=== PATIENT | female | born 1995 | race Caucasian/White ===

== ENCOUNTER 2019-06-03 21:34 | Day surgery (SDC) | payer OTHER ==
[2019-06-03 22:04] VITALS: BMI 31.1
[2019-06-03] MEDS ORDERED: hydrALAZINE 20 MG/ML VIAL SLOW IVP PRN (22:20)
--- NOTE | 2019-06-03 22:26 | PDOC.EVN ---
Event Note - Event Note Event Note: Dr Hu is on the unit in L&D and has talked with the patient as well.
--- NOTE | 2019-06-03 23:31 | HP ---
TIME OF EVALUATION: 2220 hours. LOCATION: Labor and delivery triage bed A. The patient Dr. Hu. CHIEF COMPLAINT: 1. Pelvic pressure and possible contractions. 2. EGA is 36 weeks and 6 days. HISTORY OF PRESENT ILLNESS: This is a 23-year-old, G1, P0, who sees Dr. Hu, who was at 36 weeks and 6 days, with a due date of 06/25, here for pelvic pressure. She states good movement and lower pelvic pressure when the baby moves. She denies leakage of fluid or vaginal bleeding. She denies recent trauma or fevers. REVIEW OF SYSTEMS: Complete review of systems was checked and is otherwise negative unless specified in the HPI. PAST MEDICAL HISTORY: Noncontributory. PAST SURGICAL HISTORY: None. ALLERGIES: NONE. SOCIAL HISTORY: Negative for alcohol, tobacco, or drug use. PHYSICAL EXAMINATION: VITAL SIGNS: Blood pressure is 124/78, pulse is in the 80s. She is afebrile with a temperature of 98.2. Clinically, she is in no acute distress. ABDOMEN: Soft and nontender. Abdomen reveals a soft uterine fundus. The cervical exam is 2 cm dilated, 80% effaced, 0 station, which is the same that she was in the office by her report. On monitor, heart tones are in the 130s to 140s and they are reactive/reassuring. Contractions were irregular on the TOCO, but occur about every 5-10 minutes. ASSESSMENT: This is a G1, P0, at 36 weeks and 6 days with latent labor but no cervical change from her past exam. My suspicion of true labor is small at this time. PLAN: 1. Reassurance given. 2. heart tones are reassuring on the 20-minute strip. 3. I have told the patient that she may return to Labor and Delivery if symptoms recurred. 4. I have seen the patient at bedside. 5. The patient to follow up with Dr. Hu within 24 to 48 hours for evaluation. Job ID: [id number]
[2019-06-04] MEDS ORDERED: FLU VACC QS2019-20(6MOS UP)/PF 60 MCG/0.5 ML SYRINGE IM ONE (09:00)
== END 2019-06-04 00:25 | disposition home or self-care (01) ==
LOC: L&D/OP 21:34
PROVIDERS: ATTEND Obstetrics & Gynecology
DX: O99.89 Other specified diseases and conditions complicating pregnancy, childbirth and the puerperium (principal); R10.2 Pelvic and perineal pain; Z3A.36 36 weeks gestation of pregnancy
CPT/HCPCS: 99283

== ENCOUNTER 2019-06-21 05:30 | Inpatient (IN) | payer OTHER ==
--- NOTE | 2019-06-21 01:17 | PDOC.LDHP ---
Labor and Delivery H&P Chief complaint: scheduled induction HPI: 24 y/o AT 39 AND 1/7 WEEKS FOR SCHEDULED ELECTIVE INDUCTION. GBS NEG. Current gestational age (weeks): 39 Due date: 06/27/19 Grav: 1 Para: 0 Current complications: none Abnormal US findings: No Current medications: pre- vitamins Allergies/Adverse Reactions: Allergies Allergy/AdvReac Type Severity Reaction Status Date / Time No Known Allergies Allergy Verified 06/03/19 21:55 Social history: none - Physical Exam Vital signs reviewed and normal: yes General: NAD, resting Heart: RRR Lungs: nonlabored breathing Abdomen: gravid Extremeties: no edema FHT: category 1 - Assessment L&D Assessment: elective induction at term - Plan Plan: admit to L&D
[~2019-06-21 05:30] MED LIST: Acetaminophen 500 MG TAB PO PRN; Butorphanol Tartrate 1 MG/ML VIAL SLOW IVP PRN; Carboprost 250 MCG/ML AMP IM PRN; Diphenoxylate HCl/Atropine Tablet PO PRN; Docusate 100 MG CAP PO PRN; HYDROcodone/Acetaminophen 5/325 mg Tablet PO PRN; Ibuprofen 800 MG TAB PO PRN; Lidocaine 1% (PF) 30 ML VIAL SC PRN; Methylergonovine 0.2 MG/ML VIAL IM PRN; Misoprostol 200 MCG TAB PR PRN; NS / Oxytocin 40 units/1000ml 1,000 ML IV PRN; NS w/ Oxytocin 10 units 500 ML IV SCH; Ondansetron PF 4 MG/2 ML Vial IVP PRN; Promethazine HCl 25 MG/ML VIAL IM PRN; hydrALAZINE 20 MG/ML VIAL SLOW IVP PRN
[2019-06-21] MEDS: Lactated Ringer's 1,000 ML IV SCH ×2 (16:09→18:19)
[2019-06-21 16:20] LABS: Hemoglobin 12.9 g/dL (12.0-16.0); Mean Corpuscular HGB CONC 35.4 g/dL (32.0-36.0); Mean Corpuscular Hemoglobin 31.2 pg (27.0-31.0); Mean Corpuscular Volume 88.3 fL (78.0-98.0); Mean Platelet Volume 9.7 fL (7.4-10.4); Platelet Count 263 thou/uL (130-400); RBC Distribution Width 13.1 % (11.5-14.5); Red Blood Cell (RBC) Count 4.12 mill/uL (4.20-5.40); White Blood Cell (WBC) Count 12.7 thou/uL (4.8-10.8)
[2019-06-21 16:32] VITALS: BMI 31.3
[2019-06-21 17:17] LABS: Syphilis Antibody Nonreactive (Nonreactive); Syphilis Antibody Index 0.04 S/CO (<1.00 Non-Reactive)
[2019-06-21 17:18] LABS: HBSAg Index 0.18 S/CO (0-0.99); Hep B Surf Ag Non-Reactive S/CO (NonReactive)
[2019-06-21] MEDS ORDERED: Fentanyl 4 mcg/Bup 0.1% Cadd 100 ML ONE (17:45)
[2019-06-21] MEDS ORDERED: Lidocaine 1.5%/Epinephrine 1:200,000 5 ML AMPUL IJ ONE (18:22)
[2019-06-21] MEDS ORDERED: Promethazine HCl 25 MG/ML VIAL IM PRN (19:40)
[2019-06-21] MEDS ORDERED: Naloxone HCl 0.4 mg/ml Vial IVP PRN ×2 (19:40)
[2019-06-21] MEDS ORDERED: Lactated Ringer's 500 ML IV PRN (19:40)
[2019-06-21] MEDS ORDERED: diphenhydrAMINE 50 MG/ML VIAL IVP PRN (19:40)
[2019-06-21] MEDS ORDERED: Acetaminophen 325 MG TAB PO PRN (19:40)
[2019-06-21] MEDS ORDERED: Ondansetron PF 4 MG/2 ML Vial IVP PRN (19:40)
[2019-06-21] MEDS ORDERED: ePHEDrine/0.9% NaCl/PF SYRINGE 50 mg/10 ml SLOW IVP PRN (19:40)
[2019-06-21] MEDS ORDERED: Communication Order-Pharmacy FS SCH (19:45)
[2019-06-21] MEDS ORDERED: Fentanyl 4 mcg/Bupivacaine 0.1% Cassette 100 ML EPIDURAL SCH (19:45)
[2019-06-21] MEDS ORDERED: Butorphanol Tartrate 1 MG/ML VIAL ONE (23:13)
[2019-06-22] MEDS ORDERED: Ondansetron PF 4 MG/2 ML Vial IVP PRN (07:40)
[2019-06-22] MEDS ORDERED: Lanolin Ointment 7 GM TUBE TOP PRN (07:40)
[2019-06-22] MEDS ORDERED: Zolpidem Tartrate 5 MG TAB PO PRN (07:40)
[2019-06-22] MEDS ORDERED: diphenhydrAMINE 25 MG CAP PO PRN (07:40)
[2019-06-22] MEDS ORDERED: Varicella virus, LIVE 0.5 ML VIAL SC ONE (07:40)
[2019-06-22] MEDS ORDERED: Benzocaine-Menthol 82.5 ML CAN TOP PRN (07:40)
[2019-06-22] MEDS ORDERED: Methylergonovine 0.2 MG/ML VIAL IM PRN (07:40)
[2019-06-22] MEDS ORDERED: Milk Of Magnesia 30 ML UDCUP PO PRN (07:40)
[2019-06-22] MEDS ORDERED: Preparation H Ointment 28 GM TUBE PR PRN (07:40)
[2019-06-22] MEDS ORDERED: Bisacodyl 10 MG SUPP PR PRN (07:40)
[2019-06-22] MEDS ORDERED: Adacel (T-DAP) 0.5 ML SYRINGE IM ONE (07:40)
[2019-06-22] MEDS ORDERED: Measles/Mumps/Rubella 10 MCG/0.5 ML VIAL SC ONE (07:40)
[2019-06-22] MEDS ORDERED: HYDROcodone/Acetaminophen 5/325 mg Tablet PO PRN (07:40)
[2019-06-22] MEDS ORDERED: hydrALAZINE 20 MG/ML VIAL SLOW IVP PRN (07:40)
[2019-06-22] MEDS ORDERED: NS / Oxytocin 40 units/1000ml 1,000 ML IV SCH (07:40)
[2019-06-22] MEDS ORDERED: Misoprostol 200 MCG TAB VAG PRN (07:40)
[2019-06-22] MEDS ORDERED: Promethazine HCl 25 MG/ML VIAL IM PRN (07:40)
[2019-06-22] MEDS: Lactated Ringer's 1,000 ML IV SCH ×2 (08:24→10:56)
[2019-06-22] MEDS: Ibuprofen 800 MG TAB PO SCH ×3 (08:24→23:47)
[2019-06-22] MEDS: Ferrous Sulfate 325 MG TAB PO SCH ×2 (08:42→16:56)
[2019-06-22] MEDS: Prenatal Vitamin 1 TAB PO SCH (08:42)
[2019-06-22] MEDS: Docusate Calcium (SURFAK) 240 MG CAP PO SCH ×2 (08:42→23:47)
[2019-06-22] MEDS ORDERED: FLU VACC QS2019-20(6MOS UP)/PF 60 MCG/0.5 ML SYRINGE IM ONE (09:00)
[2019-06-22] MEDS: HYDROcodone/Acetaminophen 5/325 mg Tablet PO PRN (14:18)
[2019-06-22] MEDS ORDERED: Sodium Chloride 0.9% 10 ML ONE (16:53)
[2019-06-23] MEDS: HYDROcodone/Acetaminophen 5/325 mg Tablet PO PRN (05:16)
[2019-06-23 05:50] LABS: Hemoglobin 11.3 g/dL (12.0-16.0); Mean Corpuscular HGB CONC 32.1 g/dL (32.0-36.0); Mean Corpuscular Hemoglobin 28.7 pg (27.0-31.0); Mean Corpuscular Volume 89.3 fL (78.0-98.0); Mean Platelet Volume 9.2 fL (7.4-10.4); Platelet Count 223 thou/uL (130-400); RBC Distribution Width 13.4 % (11.5-14.5); Red Blood Cell (RBC) Count 3.95 mill/uL (4.20-5.40); White Blood Cell (WBC) Count 12.2 thou/uL (4.8-10.8)
[2019-06-23 08:35] VITALS: BP 136/84; TEMP 98.4
[2019-06-23] MEDS: Ferrous Sulfate 325 MG TAB PO SCH (09:52)
[2019-06-23] MEDS: Docusate Calcium (SURFAK) 240 MG CAP PO SCH (09:52)
[2019-06-23] MEDS: Ibuprofen 800 MG TAB PO SCH (09:52)
[2019-06-23] MEDS: Prenatal Vitamin 1 TAB PO SCH (09:52)
--- NOTE | 2019-06-24 03:33 | DN ---
DATE OF PROCEDURE: 06/21/2019 TIME: 2257 central standard time. PREOPERATIVE DIAGNOSIS: Intrauterine at 39 weeks and 1 day with a scheduled term induction of labor. POSTOPERATIVE DIAGNOSIS: Intrauterine at 39 weeks and 1 day with a scheduled term induction of labor. PROCEDURE PERFORMED: Spontaneous vaginal delivery with a second-degree laceration as well as bilateral periurethral lacerations. FINDINGS: Viable male weighing 3644 g or 8 pounds 1 ounce, Apgars of 8 and 9. QUANTITATIVE BLOOD LOSS: Here, 355 mL. COMPLICATIONS: None. DESCRIPTION OF PROCEDURE: The patient presented to [facility] where she was admitted to the labor and delivery service. The patient underwent a normal and uneventful labor with normal cervical dilatation until she was found to be completely dilated. She was then allowed to push and was able to bring the baby down and delivered the baby in a vertex presentation without difficulties. Once the head delivered in occiput anterior position, the shoulders followed spontaneously along with the rest of the baby's body. Once out the baby's mouth and nose were bulb suctioned. The cord was clamped and cut and baby was handed to waiting attendants. Cord blood was collected. Gentle fundal massage was performed and the placenta delivered intact without problems. Hemostasis was assured. Quantitative blood loss was calculated. Inspection of the cervix, vaginal vault, and perineum did not reveal any lacerations needing suturing. Once again, hemostasis was within normal limits and the patient was allowed to recover in the labor and delivery room. Baby went to nursery. Job ID: [id number]
[2019-06-24] MEDS ORDERED: FLU VACC QS2019-20(6MOS UP)/PF 60 MCG/0.5 ML SYRINGE IM ONE (09:00)
== END 2019-06-23 16:10 | disposition home or self-care (01) | DRG 807 ==
LOC: L&D 15:25 → 3SW 06-22 12:15
PROVIDERS: ADMIT Obstetrics & Gynecology; ATTEND Obstetrics & Gynecology
PROC: 10907ZC Drainage of Amniotic Fluid, Therapeutic from Products of Conception, Via Natural or Artificial Opening (ICD-10-PCS; principal; 2019-06-21)
PROC: 10E0XZZ Delivery of Products of Conception, External Approach (ICD-10-PCS; 2019-06-21)
DX: O70.1 Second degree perineal laceration during delivery (principal); Z37.0 Single live birth; Z3A.39 39 weeks gestation of pregnancy; O71.82 Other specified trauma to perineum and vulva
CPT/HCPCS: 36415; 85027; 86780; 86850; 86900; 86901; 87340; 90471; 90686; 90715; G0008; J0595; J2590; J3490